=== PATIENT | male | born 1970 | race Caucasian/White ===

== ENCOUNTER 2020-02-03 15:45 | Outpatient (CLI) | payer BC ==
--- NOTE | 2020-02-03 16:08 | RAD ---
XR Chest Pa Lat STANDARD HISTORY: Other forms of dyspnea COMPARISON: None FINDINGS: The heart size is normal. The lungs are well expanded without focal areas of consolidation, pneumothorax or pleural effusions. IMPRESSION: No radiographic evidence of acute cardiopulmonary process.
== END 2020-02-03 15:46 | disposition home or self-care (01) ==
LOC: BICRAD 15:45
DX: R06.09 Other forms of dyspnea (principal); R00.2 Palpitations
CPT/HCPCS: 71046